=== PATIENT | female | born 1990 | race Caucasian/White ===

== ENCOUNTER 2021-02-10 08:41 | Emergency (ER) | payer BC ==
[2021-02-10 20:54] LABS: SARS-CoV-2 PCR by NAA Not Detected (NotDetected)
== END 2021-02-10 09:49 | disposition home or self-care (01) ==
LOC: MADERS 08:41
DX: J06.9 Acute upper respiratory infection, unspecified (principal); Z20.822 Contact with and (suspected) exposure to COVID-19
CPT/HCPCS: 87804; 99283; U0003; U0005

== ENCOUNTER 2021-10-09 21:56 | Emergency (ER) | payer MEDICAID, SELFPAY | END 2021-10-09 22:40 | disposition home or self-care (01) | LOC: MADERS 21:56 | DX: O20.0 Threatened abortion (principal); Z3A.10 10 weeks gestation of pregnancy | CPT/HCPCS: 99283 ==